=== PATIENT | female | born 1950 | race Caucasian/White ===

== ENCOUNTER → 2016-07-01 | Outpatient (CLI) | payer BC ==
--- NOTE | 2016-07-01 09:29 | MA ---
Screening Digital Mammogram Clinical Indications: Routine screening. Mother with breast cancer at age 66. Technique: Standard cephalocaudal and mediolateral oblique projections are obtained. This examinati on was processed by the [employer] computer aided detection system. Comparison: May 2015, March 2014, February 2013 and February 2012 Breast density: C; The breast tissue is heterogeneously dense, which could obscure detection of small masses. Findings: CAD was reviewed. No suspicious findings are identified. Impression: Negative mammogram. BI-RADS 1. Recommendation: Routine screening is recommended in one year, as long as physical examination is rosa ign in this patient with moderately dense breast parenchyma. Replaced By [facility] will send a result letter to the patient. Negative mammography should not preclude additional workup of a clinically suspicious finding. The patient's information is entered into a reminder system with a target due date for her next mammo gram.
== END ==
LOC: BMCIMAGING 08:19
DX: Z12.31 Encounter for screening mammogram for malignant neoplasm of breast (principal); Z80.3 Family history of malignant neoplasm of breast
CPT/HCPCS: G0202

== ENCOUNTER → 2017-07-28 | Outpatient (CLI) | payer BC | LOC: BMCIMAGING 13:09 | PROVIDERS: ATTEND Nurse Practitioner Adult Health | DX: Z12.31 Encounter for screening mammogram for malignant neoplasm of breast (principal); Z80.3 Family history of malignant neoplasm of breast ==

== ENCOUNTER → 2018-08-01 | Outpatient (CLI) | payer BC | LOC: BMCIMAGING 08:33 | PROVIDERS: ATTEND Nurse Practitioner Adult Health | DX: Z12.31 Encounter for screening mammogram for malignant neoplasm of breast (principal); Z80.3 Family history of malignant neoplasm of breast ==